=== PATIENT | female | born 1960 | race Caucasian/White ===

== ENCOUNTER 2017-03-16 05:32 | Day surgery (SDC) | payer BC ==
[~2017-03-16] VITALS: Ht 162.6 cm; Wt 85.3 kg
[~2017-03-16 05:32] MED LIST: ACETYL L-CARNI1 EACH PO; CALCIUM 500 MG1 EACH PO; IRON325 M1 PO; KLONOPIN0.5 M1 PO; MULTIPLE VITAM1 EAC1 PO; NOHOMEMEDS; VITAMIN D31000 UNIT PO
[2017-03-16 06:26] VITALS: BP 139/80
[2017-03-16] MEDS ORDERED: NORCO 5/3251 TABLET PO (09:22)
[2017-03-16] MEDS ORDERED: MOTRIN600 MG PO (09:22)
[2017-03-16 09:49] VITALS: BP 120/75
[2017-03-16 10:52] VITALS: BP 114/64
== END 2017-03-16 11:20 | disposition home or self-care (01) ==
LOC: SDC 05:32
PROC: 0YU60JZ Supplement Left Inguinal Region with Synthetic Substitute, Open Approach (ICD-10-PCS; principal; 2017-03-16)
DX: K40.90 Unilateral inguinal hernia, without obstruction or gangrene, not specified as recurrent (principal); I10 Essential (primary) hypertension; G47.00 Insomnia, unspecified; K21.9 Gastro-esophageal reflux disease without esophagitis; Z87.891 Personal history of nicotine dependence
CPT/HCPCS: C1781; J0690; J1885; J2250; J2405; J3010; Q0175; S0020